=== PATIENT | female | born 1950 | race Caucasian/White ===

== ENCOUNTER → 2019-09-30 | Outpatient (CLI) | payer MEDICAID, MEDICARE ==
[~2019-09-30] MED LIST: IOHEXOL 300 MG/ML 100ML VIAL. IV ONE; IOHEXOL 300 MG/ML 100ML VIAL. ONE
--- NOTE | 2019-09-30 16:26 | RAD ---
Examination: CT ABD PELV W/ IV CONTRST ONLY History: Right lower quadrant pain Comparison/Correlation: None Findings: Axial images of the abdomen and pelvis were obtained following IV contrast. Sagittal and coronal reformatted images were provided. Oral contrast is evident within the distal colon. Contrast also appears to be present within the cecum. Correlate with previous exam history. Small moderate size right pleural effusion is present with adjacent atelectasis. Small left pleural effusion is present with adjacent atelectasis. Tube within the esophagus terminates at the gastroesophageal junction. Coronary arterial calcification are present. Liver, spleen, adrenal glands, pancreas, and right kidney are unremarkable. Left renal inferior pole scarring noted. Small cyst involving the left kidney. Cholecystectomy noted. Diverticulosis of the colon is identified. No inflammatory changes identified. Appendix is not definitely seen. Minimal gas within the urinary bladder is present. Uterus is unremarkable. No ascites or pelvic free fluid. Laminectomy defects bilaterally noted from approximately T11-L4. Disc space narrowing at L4-S1 noted. Impression: Minimal gas in the urinary bladder. Correlate with instrumentation. Diverticulosis. No inflammatory changes involving the right lower quadrant. Bilateral pleural effusions greater on the right noted with minimal adjacent atelectasis. Tube within the esophagus terminates at the gastroesophageal junction. Repositioning should be considered. PQRS Compliance Statement: One or more of the following individualized dose reduction techniques were utilized for this examination: 1. Automated exposure control 2. Adjustment of the mA and/or kV according to patient size 3. Use of iterative reconstruction technique Electronically signed by: Jasis Beard MD (09/30/2019 4:23 PM) [id number]
== END | disposition home or self-care (01) ==
LOC: EDSTATUS 10:34 → 6 SOUTH 16:02 → UNDOADMIN 16:02 → RAD 16:10
PROVIDERS: ATTEND Internal Medicine
DX: K57.30 Diverticulosis of large intestine without perforation or abscess without bleeding (principal); J90 Pleural effusion, not elsewhere classified; I25.10 Atherosclerotic heart disease of native coronary artery without angina pectoris; N28.89 Other specified disorders of kidney and ureter; I10 Essential (primary) hypertension; E11.9 Type 2 diabetes mellitus without complications; Z90.49 Acquired absence of other specified parts of digestive tract
CPT/HCPCS: 74177; Q9967; G0378